=== PATIENT | male | born 1965 | race Caucasian/White ===

== ENCOUNTER 2017-11-05 06:44 | Day surgery (SDC) | payer BC ==
[~2017-11-05] VITALS: Ht 185.4 cm; Wt 93.0 kg
[2017-11-05] MEDS ORDERED: SODIUM CHLORIDE 0.9% 1000ML 1,000 ML IV ONE (06:47)
[2017-11-05 06:58] VITALS: BP 140/76
[2017-11-05] MEDS ORDERED: PROPOFOL 10 MG/ML 20ML VIAL IV ONE (08:08)
[2017-11-05 08:26] VITALS: BP 108/62
== END 2017-11-05 09:00 ==
LOC: DAH 06:44
PROVIDERS: ATTEND Internal Medicine Gastroenterology
DX: Z12.11 Encounter for screening for malignant neoplasm of colon (principal); G43.909 Migraine, unspecified, not intractable, without status migrainosus; Z98.890 Other specified postprocedural states
CPT/HCPCS: 45378; A4606; J2704; J7030